=== PATIENT | female | born 1985 | race Caucasian/White ===

== ENCOUNTER 2018-01-11 11:58 | Emergency (ER) | payer OTHER, SELFPAY ==
[2018-01-11 13:14] LABS: Urine Blood 3+ (NEG); Urine Glucose NEGATIVE (NEG); Urine Protein 1+ (NEG); Urine Specific Gravity 1.025 (1.005-1.030); Urine pH 5.5 (5.0-7.0)
[2018-01-11 13:18] LABS: Urine Bacteria 20-50 /HPF (<20); Urine Culture Reflex Order NOT NEEDED; Urine RBC >50 /HPF (NONE SEEN)
[2018-01-11 13:19] LABS: Urine Trichomonas PRESENT (NONE SEEN)
[2018-01-11] MEDS ORDERED: KETOROLAC 30 MG/ML INJ ONE (13:38)
[2018-01-11] MEDS ORDERED: metroNIDAZOLE 500 MG TABLET ONE (13:38)
--- NOTE | 2018-01-11 13:51 | RAD REPORT ---
EXAM DESCRIPTION: CT - Stone Protocol - 01/11/2018 1:34 pm CLINICAL HISTORY: Flank pain. ABD PAIN COMPARISON: No comparisons TECHNIQUE: Axial images were obtained without oral or IV contrast. Lack of contrast limits solid org an and vascular assessment. The [id number] spans the entirety of the system partially obscuring uppermost abdomen and lung bases. Coronal reformatted images were obtained and reviewed. All CT scans are performed using dose optimization technique as appropriate and may include automated exposure control or mA/KV adjustment according to patient size. FINDINGS: The lower lung ferraro are clear. Imaged portions of the liver and spleen show no suspicious findings on non-contrast imaging. The panc reas and adrenal glands are normal. No pathologic lymphadenopathy in the abdomen or pelvis. No urinary tract stones or obstructive uropathy. No bowel obstruction, free air, free fluid or abscess. Normal appendix noted. Mild posterior disc bulge at L5-S1. IMPRESSION: No urinary tract stones or obstructive uropathy.
--- NOTE | 2018-01-11 13:55 | ER ---
Nurse's Notes [facility] Name: Ginny Leonardo Age: 32 yrs Sex: Female : 1985 Arrival Date: 01/11/2018 Time: 12:02 Bed 24 Private MD: Diagnosis: Trichomoniasis;Lower abdominal pain, unspecified Presentation: 01/11 12:17 Presenting complaint: Patient states: upper and lower left sided abdominal pain since aj1 last night. Reports nausea, denies vomiting, diarrhea,fever. Transition of care: patient was not received from another setting of care. Onset of symptoms was January 10, 2018. Risk Assessment: Do you want to hurt yourself or someone else? Patient reports no desire to harm self or others. Initial Sepsis Screen: Does the patient meet any 2 criteria? HR > 90 bpm. No. Patient's initial sepsis screen is negative. Does the patient have a suspected source of infection? No. Patient's initial sepsis screen is negative. Care prior to arrival: None. 12:17 Method Of Arrival: Ambulatory aj 12:17 Acuity: ANG 3 aj1 Triage Assessment: 12:22 General: Appears uncomfortable, Behavior is cooperative, restless. Pain: Complains of aj1 pain in left upper quadrant and left lower quadrant Pain does not radiate. Pain currently is 8 out of 10 on a pain scale. Quality of pain is described as sharp, stabbing, Pain began 1 day ago. Is continuous, Alleviated by nothing. Aggravated by walking. GI: Reports lower abdominal pain, upper abdominal pain, nausea, Patient currently denies diarrhea, vomiting. 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 - Social history:: Smoking status: Patient uses tobacco products, smokes one-half pack cigarettes per day. - Ebola Screening: : Patient denies travel to an Ebola-affected area in the 21 days before illness onset. Screenin:12 Abuse screen: Denies threats or abuse. Denies injuries from another. Nutritional aj screening: No deficits noted. Tuberculosis screening: No symptoms or risk factors identified. Fall Risk None identified. Assessment: 14:11 General: Appears in no apparent distress. comfortable, Behavior is calm, cooperative, aj appropriate for age. Pain: Complains of pain in pelvis. Neuro: Level of Consciousness is awake, alert, obeys commands, Oriented to person, place, time, situation, Appropriate for age. Respiratory: Airway is patent Respiratory effort is even, unlabored, Respiratory pattern is regular, symmetrical. : Reports pain in suprapubic area. Derm: Skin is intact, is healthy with good turgor, Skin is pink, warm \T\ dry. normal. 14:26 GI: aj 14:27 GI: aj Vital Signs: 12:22 BP 119 / 76; Pulse 104; Resp 22; Temp 98.2; Pulse Ox 99% on R/A; Weight 86.18 kg (R); aj1 Height 5 ft. 4 in. (162.56 cm); Pain 8/10; 14:26 BP 121 / 85; Pulse 76; Resp 16; Temp 98.3; Pulse Ox 99% on R/A; aj 12:22 Body Mass Index 32.61 (86.18 kg, 162.56 cm) aj1 ED Course: 12:02 Patient arrived in ED. rg4 12:21 Triage completed. aj1 12:22 Arm band placed on Patient placed in an exam room. aj1 12:29 Kandis Thurman [facility]-C [facility]. snw 12:29 Prakash Santa MD is Attending Physician. snw 12:51 Arabella Wright, RN is Primary Nurse. aj 13:34 CT Stone Protocol In Process Unspecified. EDMS 14:12 Patient has correct armband on for positive identification. aj 14:12 No provider procedures requiring assistance completed. Patient did not have IV access aj during this emergency room visit. Administered Medications: 13:41 Drug: TORadol 60 mg Route: IM; Site: right gluteus; tl3 14:13 Follow up: Response: Pain is decreased aj 13:42 Drug: Flagyl 500 mg Route: PO; tl3 14:13 Follow up: Response: No adverse reaction aj Outcome: 13:55 Discharge ordered by . snw 14:26 Discharged to home ambulatory, with family. aj 14:26 Condition: good 14:26 Discharge instructions given to patient, family, Instructed on discharge instructions, follow up and referral plans. medication usage, Demonstrated understanding of instructions, follow-up care, medications, Prescriptions given X 3. 14:27 Patient left the ED. aj Signatures: Dispatcher [employer] Cori White RN RN aj1 Arabella Wright RN RN aj Kandis Thurman, PRINTED CIRCUIT BOARDS BEVELER-C PRINTED CIRCUIT BOARDS BEVELER-Csnw Latonia Stuart rg4 Sharon Chris RN RN tl3
--- NOTE | 2018-01-11 13:56 | EDPHYS ---
Physician Documentation [facility] Name: Ginny Leonardo Age: 32 yrs Sex: Female : 1985 Arrival Date: 01/11/2018 Time: 12:02 Bed 24 Private MD: ED Physician Prakash Santa HPI: 01/11 14:22 This 32 yrs old Female presents to ER via Ambulatory with complaints of snw Abdominal Pain, Low Back Pain. 14:22 The patient presents with abdominal pain in the lower abdomen. Onset: The snw symptoms/episode began/occurred gradually, 1 week(s) ago, and became persistent. The symptoms radiate to back. Associated signs and symptoms: Pertinent positives: nausea. The symptoms are described as crampy, steady. Severity of pain: At its worst the pain was moderate severe. The patient has not experienced similar symptoms in the past. The patient has been recently seen by a physician: with similar presenting complaints, Per [facility]. 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 - Social history:: Smoking status: Patient uses tobacco products, smokes one-half pack cigarettes per day. - Ebola Screening: : Patient denies travel to an Ebola-affected area in the 21 days before illness onset. ROS: 14:21 Constitutional: Negative for fever, chills, and weight loss, Eyes: Negative for injury, snw pain, redness, and discharge, ENT: Negative for injury, pain, and discharge, Neck: Negative for injury, pain, and swelling, Cardiovascular: Negative for chest pain, palpitations, and edema, Respiratory: Negative for shortness of breath, cough, wheezing, and pleuritic chest pain, Back: Negative for injury and pain, : Negative for injury, bleeding, discharge, and swelling, MS/Extremity: Negative for injury and deformity, Skin: Negative for injury, rash, and discoloration, Neuro: Negative for headache, weakness, numbness, tingling, and seizure. 14:21 Abdomen/GI: Positive for abdominal pain, nausea. Exam: 14:20 Constitutional: This is a well developed, well nourished patient who is awake, alert, snw and in no acute distress. Head/Face: Normocephalic, atraumatic. Eyes: Pupils equal round and reactive to light, extra-ocular motions intact. Lids and lashes normal. Conjunctiva and sclera are non-icteric and not injected. Cornea within normal limits. Periorbital areas with no swelling, redness, or edema. ENT: Nares patent. No nasal discharge, no septal abnormalities noted. Tympanic membranes are normal and external auditory canals are clear. Oropharynx with no redness, swelling, or masses, exudates, or evidence of obstruction, uvula midline. Mucous membranes moist. Neck: Trachea midline, no thyromegaly or masses palpated, and no cervical lymphadenopathy. Supple, full range of motion without nuchal rigidity, or vertebral point tenderness. No Meningismus. Chest/axilla: Normal chest wall appearance and motion. Nontender with no deformity. No lesions are appreciated. Cardiovascular: Regular rate and rhythm with a normal S1 and S2. No gallops, murmurs, or rubs. Normal PMI, no JVD. No pulse deficits. Respiratory: Lungs have equal breath sounds bilaterally, clear to auscultation and percussion. No rales, rhonchi or wheezes noted. No increased work of breathing, no retractions or nasal flaring. Back: No spinal tenderness. No costovertebral tenderness. Full range of motion. Skin: Warm, dry with normal turgor. Normal color with no rashes, no lesions, and no evidence of cellulitis. MS/ Extremity: Pulses equal, no cyanosis. Neurovascular intact. Full, normal range of motion. Neuro: Awake and alert, GCS 15, oriented to person, place, time, and situation. Cranial nerves II-XII grossly intact. Motor strength 5/5 in all extremities. Sensory grossly intact. Cerebellar exam normal. Normal gait. 14:20 Abdomen/GI: Inspection: abdomen appears normal, Bowel sounds: normal, in all quadrants, Palpation: moderate abdominal tenderness, in the right lower quadrant and left lower quadrant. Vital Signs: 12:22 BP 119 / 76; Pulse 104; Resp 22; Temp 98.2; Pulse Ox 99% on R/A; Weight 86.18 kg (R); aj1 Height 5 ft. 4 in. (162.56 cm); Pain 8/10; 14:26 BP 121 / 85; Pulse 76; Resp 16; Temp 98.3; Pulse Ox 99% on R/A; aj 12:22 Body Mass Index 32.61 (86.18 kg, 162.56 cm) aj1 MDM: 12:31 Patient medically screened. snw 14:21 Data reviewed: vital signs, nurses notes. Data interpreted: Pulse oximetry: on room air snw is 99 %. Interpretation: normal. Counseling: I had a detailed discussion with the patient and/or guardian regarding: the historical points, exam findings, and any diagnostic results supporting the discharge/admit diagnosis, lab results, radiology results, the need for outpatient follow up, to return to the emergency department if symptoms worsen or persist or if there are any questions or concerns that arise at home. Special discussion: Based on the history and exam findings, there is no indication for further emergent testing or inpatient evaluation. I discussed with the patient/guardian the need to see the OB Gyne specialist for further evaluation of the symptoms. 01/11 12:30 Order name: Urine Culture snw 01/11 12:30 Order name: Urine Microscopic Only; Complete Time: 13:22 snw 01/11 13:12 Order name: Urine Dipstick--Ancillary (enter results); Complete Time: 13:17 bd 01/11 13:12 Order name: Urine --Ancillary (enter results); Complete Time: 13:17 bd 01/11 13:18 Order name: CT Stone Protocol; Complete Time: 13:53 snw 01/11 12:30 Order name: Urine Test (obtain specimen); Complete Time: 12:51 snw 01/11 12:30 Order name: Urine Dipstick-Ancillary (obtain specimen); Complete Time: 14:11 snw Administered Medications: 13:41 Drug: TORadol 60 mg Route: IM; Site: right gluteus; tl3 14:13 Follow up: Response: Pain is decreased aj 13:42 Drug: Flagyl 500 mg Route: PO; tl3 14:13 Follow up: Response: No adverse reaction aj Disposition: 17:07 Co-signature as Attending Physician, Prakash Santa MD. rn Disposition: 01/11/18 13:55 Discharged to Home. Impression: Trichomoniasis, Lower abdominal pain, unspecified. - Condition is Stable. - Discharge Instructions: Trichomoniasis, Abdominal Pain, Women. - Prescriptions for Bentyl 20 mg Oral Tablet - take 1 tablet by ORAL route every 6 hours As needed; 20 tablet. Flagyl 500 mg Oral Tablet - take 1 tablet by ORAL route every 8 hours for 10 days; 30 tablet. Diclofenac Sodium 75 mg Oral Tablet Sustained Release - take 1 tablet by ORAL route 2 times per day; 30 tablet. - Work release form, Medication Reconciliation Form, Thank You Letter, Antibiotic Education, Prescription Opioid Use form. - Follow up: Emergency Department; When: As needed; Reason: Worsening of condition. Follow up: Private Physician; When: 2 - 3 days; Reason: Recheck today's complaints, Continuance of care, Re-evaluation by your physician. Signatures: Dispatcher [employer] EDMS Cori Call RN RN ajArabella Dos Santos RN RN Kandis Connolly, SEARCH PLANNER-C SEARCH PLANNER-Csnw Prakash Santa MD MD rn Lowrey, Tammy, RN RN tl3 Corrections: (The following items were deleted from the chart) 14:27 13:55 01/11/2018 13:55 Discharged to Home. Impression: Trichomoniasis; Lower abdominal aj pain, unspecified. Condition is Stable. Forms are Medication Reconciliation Form, Thank You Letter, Antibiotic Education, Prescription Opioid Use. Follow up: Emergency Department; When: As needed; Reason: Worsening of condition. Follow up: Private Physician; When: 2 - 3 days; Reason: Recheck today's complaints, Continuance of care, Re-evaluation by your physician. snw
== END 2018-01-11 14:27 | disposition home or self-care (01) ==
LOC: ER 11:58
DX: A59.9 Trichomoniasis, unspecified (principal); F17.210 Nicotine dependence, cigarettes, uncomplicated
CPT/HCPCS: 74176; 76377; 81003; 81015; 81025; 87086; 87088; 96372; 99283

== ENCOUNTER 2018-02-28 11:17 | Emergency (ER) | payer SELFPAY ==
--- NOTE | 2018-02-28 11:52 | ER ---
Nurse's Notes [facility] Name: Ginny Leonardo Age: 32 yrs Sex: Female : 1985 Arrival Date: 02/28/2018 Time: 11:18 Bed 12 Private MD: Diagnosis: Pneumonia, unspecified organism Presentation: 02/28 11:36 Presenting complaint: Patient states: Sinus Pressure and pain, forehead, sinus has been sg draining for a bout a day or two, reports fever of TMAX of 101, reports taking motrin for relief of fever, but not helping with other symptoms. Transition of care: patient was not received from another setting of care. Onset of symptoms was February 28, 2018. Risk Assessment: Do you want to hurt yourself or someone else? Patient reports no desire to harm self or others. Initial Sepsis Screen: Does the patient meet any 2 criteria? No. Patient's initial sepsis screen is negative. Does the patient have a suspected source of infection? No. Patient's initial sepsis screen is negative. Care prior to arrival: None. 11:36 Method Of Arrival: Ambulatory sg 11:36 Acuity: ANG 4 sg Triage Assessment: 11:40 Headache History: Denies prior headaches. General: Appears in no apparent distress. sg Behavior is calm, cooperative, appropriate for age. 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 - Social history:: Smoking status: Patient uses tobacco products, smokes one-half pack cigarettes per day. - Ebola Screening: : Patient negative for fever greater than or equal to 101.5 degrees Fahrenheit, and additional compatible Ebola Virus Disease symptoms Patient denies exposure to infectious person Patient denies travel to an Ebola-affected area in the 21 days before illness onset No symptoms or risks identified at this time. Screenin:40 Abuse screen: Denies threats or abuse. Denies injuries from another. Nutritional sg screening: No deficits noted. Tuberculosis screening: No symptoms or risk factors identified. Never had TB. Fall Risk None identified. Assessment: 11:42 General: Appears in no apparent distress. comfortable, well groomed, well developed, sg well nourished, Behavior is calm, cooperative, appropriate for age. Pain: Complains of pain in forehead, right cheek and left cheek Quality of pain is described as throbbing. Neuro: No deficits noted. Cardiovascular: No deficits noted. Denies chest pain, diaphoresis, fatigue, lightheadedness, nausea, palpitations, shortness of breath, syncope, vomiting. Respiratory: Airway is patent Respiratory effort is even, unlabored, Respiratory pattern is regular, symmetrical, Breath sounds are clear. Respiratory: Reports cough that is non-productive. GI: No signs and/or symptoms were reported involving the gastrointestinal system. : No signs and/or symptoms were reported regarding the genitourinary system. EENT: Nares are clear bilaterally Throat is reddened Reports nasal congestion. Derm: Skin is pink, warm \T\ dry. Musculoskeletal: No signs and/or symptoms reported regarding the musculoskeletal system. Vital Signs: 11:38 Weight 90.72 kg (R); Height 5 ft. 11 in. (180.34 cm); Pain 10/10; sg 11:38 Pulse 95; Resp 20; Temp 99.1(TE); Pulse Ox 99% on R/A; sg 11:40 BP 116 / 81; sg 11:38 Body Mass Index 27.89 (90.72 kg, 180.34 cm) sg ED Course: 11:18 Patient arrived in ED. as 11:38 Triage completed. sg 11:38 Arm band placed on. sg 11:43 Kandis Thurman FNP-C is [facility]. snw 11:43 Angel Ta MD is Attending Physician. snw 11:51 Ras Colbert, LUIS is Primary Nurse. sg 12:00 No provider procedures requiring assistance completed. Patient did not have IV access sg during this emergency room visit. 12:20 Patient has correct armband on for positive identification. Bed in low position. Call sg light in reach. playground monitor on. Pulse ox on. NIBP on. Warm blanket given. Head of bed elevated. Administered Medications: 12:05 Drug: ZyrTEC - Cetirizine 10 mg Route: PO; sg 12:06 Drug: Albuterol - atroVENT (3:1) (2.5 mg - 0.5 mg) 3 ml Route: Nebulizer; sg 12:06 Drug: Rocephin (cefTRIAXone) 1 grams {Note: left ventrogluteal.} Route: IM; Site: Other;sg 12: Drug: Zithromax 500 mg Route: PO; sg 12: Drug: predniSONE 40 mg Route: PO; sg 12:06 Drug: Pepcid 20 mg Route: PO; sg Outcome: 11:51 Discharge ordered by . kaye 12:25 Discharged to home ambulatory. sg 12:25 Condition: good 12:25 Discharge instructions given to patient, Instructed on discharge instructions, follow up and referral plans. medication usage, safety practices, Demonstrated understanding of instructions, follow-up care, medications, Prescriptions given X 4. 12:31 Patient left the ED. eb Signatures: Ras Colbert RN RN sg Kandis Thurman, EDITOR PRODUCER-C EDITOR PRODUCER-Csnw Gloria Allred Elizabeth eb Corrections: (The following items were deleted from the chart) 11:41 11:38 Pulse 115bpm; Resp 20bpm; Pulse Ox 99% RA; Temp 99.1F Temporal; sg sg
--- NOTE | 2018-02-28 11:52 | EDPHYS ---
Physician Documentation [facility] Name: Ginny Leonardo Age: 32 yrs Sex: Female : 1985 Arrival Date: 02/28/2018 Time: 11:18 Bed 12 Private MD: ED Physician Angel Ta HPI: 02/28 12:02 This 32 yrs old Female presents to ER via Ambulatory with complaints of Sinus snw Congestion, Headache. 12:02 The patient or guardian reports airway noise, flu symptoms, arthralgias, low-grade snw fever, myalgias. Onset: The symptoms/episode began/occurred yesterday. Severity of symptoms: At their worst the symptoms were moderate, severe. Associated signs and symptoms: Pertinent positives: fever. It is unknown whether or not the patient has had similar symptoms in the past. The patient has not recently seen a physician. RUNNER ON: 11:38 LMP 01/12/2018 sg Historical: - Allergies: 11:40 No Known Allergies; sg - Home Meds: 11:40 None [Active]; sg - PMHx: 11:40 chronic disc pain; Depression; TIA; sg - PSHx: 11:40 ; D \T\ C; sg - Immunization history:: Adult Immunizations up to date. - Social history:: Smoking status: Patient uses tobacco products, smokes one-half pack cigarettes per day. - Ebola Screening: : Patient negative for fever greater than or equal to 101.5 degrees Fahrenheit, and additional compatible Ebola Virus Disease symptoms Patient denies exposure to infectious person Patient denies travel to an Ebola-affected area in the 21 days before illness onset No symptoms or risks identified at this time. ROS: 11:56 Constitutional: Negative for fever, chills, and weight loss, + fatigue Eyes: Negative snw for injury, pain, redness, and discharge, ENT: Negative for injury, pain, and discharge, Neck: Negative for injury, pain, and swelling, Cardiovascular: Negative for chest pain, palpitations, and edema. 11:56 Abdomen/GI: Negative for abdominal pain, nausea, vomiting, diarrhea, and constipation, Back: Negative for injury and pain, : Negative for injury, bleeding, discharge, and swelling, MS/Extremity: Negative for injury and deformity, Skin: Negative for injury, rash, and discoloration, Neuro: Negative for headache, weakness, numbness, tingling, and seizure. 11:56 Respiratory: Positive for cough, shortness of breath, wheezing. Exam: 11:53 Constitutional: This is a well developed, well nourished patient who is awake, alert, snw and in no acute distress. 11:53 Eyes: Pupils equal round and reactive to light, extra-ocular motions intact. Lids and lashes normal. Conjunctiva and sclera are non-icteric and not injected. Cornea within normal limits. Periorbital areas with no swelling, redness, or edema. Neck: Trachea midline, no thyromegaly or masses palpated, and no cervical lymphadenopathy. Supple, full range of motion without nuchal rigidity, or vertebral point tenderness. No Meningismus. Chest/axilla: Normal chest wall appearance and motion. Nontender with no deformity. No lesions are appreciated. Cardiovascular: Regular rate and rhythm with a normal S1 and S2. No gallops, murmurs, or rubs. Normal PMI, no JVD. No pulse deficits. Abdomen/GI: Soft, non-tender, with normal bowel sounds. No distension or tympany. No guarding or rebound. No evidence of tenderness throughout. Back: No spinal tenderness. No costovertebral tenderness. Full range of motion. Skin: Warm, dry with normal turgor. Normal color with no rashes, no lesions, and no evidence of cellulitis. MS/ Extremity: Pulses equal, no cyanosis. Neurovascular intact. Full, normal range of motion. Neuro: Awake and alert, GCS 15, oriented to person, place, time, and situation. Cranial nerves II-XII grossly intact. Motor strength 5/5 in all extremities. Sensory grossly intact. Cerebellar exam normal. Normal gait. Psych: Awake, alert, with orientation to person, place and time. Behavior, mood, and affect are within normal limits. 11:53 Constitutional: The patient appears alert, awake, uncomfortable. 11:53 Head/face: Noted is swelling, that is moderate, of the nose, Sinus tenderness, that is mild. 11:53 Respiratory: the patient does not display signs of respiratory distress, Respirations: normal, Breath sounds: decreased breath sounds, that are moderate, wheezing: mild tachypnea, decreased air movement, congestion. Vital Signs: 11:38 Weight 90.72 kg (R); Height 5 ft. 11 in. (180.34 cm); Pain 10/10; sg 11:38 Pulse 95; Resp 20; Temp 99.1(TE); Pulse Ox 99% on R/A; sg 11:40 BP 116 / 81; sg 11:38 Body Mass Index 27.89 (90.72 kg, 180.34 cm) sg MDM: 11:43 Patient medically screened. snw 12:01 Data reviewed: vital signs, nurses notes. Data interpreted: Pulse oximetry: on room air snw is 99 %. Interpretation: normal. Counseling: I had a detailed discussion with the patient and/or guardian regarding: the historical points, exam findings, and any diagnostic results supporting the discharge/admit diagnosis, the presence of at least one elevated blood pressure reading (>120/80) during this emergency department visit, the need for outpatient follow up, to return to the emergency department if symptoms worsen or persist or if there are any questions or concerns that arise at home, smoking cessation. Special discussion: Based on the history and exam findings, there is no indication for further emergent testing or inpatient evaluation. I discussed with the patient/guardian the need to see the primary care provider for further evaluation of the symptoms. Administered Medications: 12:05 Drug: ZyrTEC - Cetirizine 10 mg Route: PO; sg 12:06 Drug: Albuterol - atroVENT (3:1) (2.5 mg - 0.5 mg) 3 ml Route: Nebulizer; sg 12:06 Drug: Rocephin (cefTRIAXone) 1 grams {Note: left ventrogluteal.} Route: IM; Site: Other;sg 12:06 Drug: Zithromax 500 mg Route: PO; sg 12:06 Drug: predniSONE 40 mg Route: PO; sg 12:06 Drug: Pepcid 20 mg Route: PO; sg Disposition: 15:19 Co-signature as Attending Physician, Angel Ta MD I agree with the assessment and marty plan of care. Disposition: 02/28/18 11:51 Discharged to Home. Impression: Pneumonia, unspecified organism. - Condition is Stable. - Discharge Instructions: Community-Acquired Pneumonia, Adult, Steps to Quit Smoking, Smoking Hazards. - Prescriptions for Zyrtec 10 mg Oral Tablet - take 1 tablet by ORAL route once daily As needed; 20 tablet. Prednisone 20 mg Oral Tablet - take 2 tablet by ORAL route once daily for 5 days; 10 tablet. Albuterol Sulfate 90 mcg/actuation - inhale 1-2 puff by INHALATION route every 4-6 hours; 1 Inhaler. Pepcid 20 mg Oral Tablet - take 1 tablet by ORAL route once daily; 20 tablet. Zithromax 500 mg Oral Tablet - take 1 tablet by ORAL route once daily for 5 days; 5 tablet. - Work release form, Medication Reconciliation Form, Thank You Letter, Antibiotic Education, Prescription Opioid Use form. - Follow up: Private Physician; When: 2 - 3 days; Reason: Recheck today's complaints, Continuance of care, Re-evaluation by your physician. Follow up: Emergency Department; When: As needed; Reason: Worsening of condition. Signatures: Ras Colbert RN RN sg Anderson, Corey, MD MD cha Therrien, Shelly, RECORDER HELPER SEISMOGRAPH-C RECORDER HELPER SEISMOGRAPH-Ivory Fernandez Corrections: (The following items were deleted from the chart) 12:31 11:51 02/28/2018 11:51 Discharged to Home. Impression: Pneumonia, unspecified organism. eb Condition is Stable. Forms are Medication Reconciliation Form, Thank You Letter, Antibiotic Education, Prescription Opioid Use. Follow up: Private Physician; When: 2 - 3 days; Reason: Recheck today's complaints, Continuance of care, Re-evaluation by your physician. Follow up: Emergency Department; When: As needed; Reason: Worsening of condition. snw
[2018-02-28] MEDS ORDERED: CETIRIZINE HCL 5 MG TABLET ONE (11:58)
[2018-02-28] MEDS ORDERED: AZITHROMYCIN 250 MG TAB ONE (11:58)
[2018-02-28] MEDS ORDERED: LIDOCAINE 1% MPF 5 ML VIAL ONE (11:58)
[2018-02-28] MEDS ORDERED: ALBUTEROL 2.5 MG/3 ML NEB SOL ONE (11:58)
[2018-02-28] MEDS ORDERED: FAMOTIDINE 20 MG TAB ONE (11:59)
[2018-02-28] MEDS ORDERED: IPRATROPIUM BROM 0.5MG/2.5ML ONE (11:59)
[2018-02-28] MEDS ORDERED: predniSONE 20 MG TAB ONE (11:59)
[2018-02-28] MEDS ORDERED: CEFTRIAXONE 1000 MG/VIAL ONE (11:59)
== END 2018-02-28 12:31 | disposition home or self-care (01) ==
LOC: ER 11:17
DX: J18.9 Pneumonia, unspecified organism (principal); F17.210 Nicotine dependence, cigarettes, uncomplicated
CPT/HCPCS: 94640; 96372; 99284; J7512

== ENCOUNTER 2018-05-25 14:38 | Emergency (ER) | payer SELFPAY ==
--- NOTE | 2018-05-25 15:10 | EDPHYS ---
Physician Documentation [facility] Name: Ginny Leonardo Age: 32 yrs Sex: Female : 1985 Arrival Date: 05/25/2018 Time: 14:40 Bed 23 Private MD: None, None ED Physician Prakash Santa HPI: 05/25 15:08 This 32 yrs old Female presents to ER via Ambulatory with complaints of jmm Insect Bite. 15:08 The patient presents with cellulitis of the abdomen. Onset: The symptoms/episode jmm began/occurred gradually, 2 day(s) ago. Possible cause(s): unknown. Associated signs and symptoms: Pertinent negatives: fever. This is a 32 year old female with a history of depression that presents to the ED with swelling to her abdomen she believes may have been cause by an insect bite. Denies fever. States having a previous hisotyr of staph infection. 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 - Social history:: Smoking status: Patient uses tobacco products, smokes one-half pack cigarettes per day. - Ebola Screening: : Patient negative for fever greater than or equal to 101.5 degrees Fahrenheit, and additional compatible Ebola Virus Disease symptoms Patient denies exposure to infectious person Patient denies travel to an Ebola-affected area in the 21 days before illness onset No symptoms or risks identified at this time. ROS: 15:08 Constitutional: Negative for fever, chills, and weight loss, Cardiovascular: Negative jmm for chest pain, palpitations, and edema, Respiratory: Negative for shortness of breath, cough, wheezing, and pleuritic chest pain. 15:08 Skin: Positive for erythema. 15:08 All other systems are negative. Exam: 15:08 Head/Face: atraumatic. Eyes: EOMI, no conjunctival erythema appreciated ENT: Moist jmm Mucus Membranes Neck: Trachea midline, Supple Chest/axilla: Normal chest wall appearance and motion. Cardiovascular: Regular rate and rhythm. No edema appreciated Respiratory: Normal respirations, no respiratory distress appreciated 15:08 Constitutional: The patient appears in no acute distress, alert, awake. 15:08 Abdomen/GI: erythema noted to the lower abdomen. 15:08 Back: ROM is normal. 15:08 Musculoskeletal/extremity: ROM: intact in all extremities. 15:08 Skin: erythema noted to the right lower abdomen, no induration is appreciated, mildly tender to palpation. 15:08 Neuro: Orientation: is normal, Mentation: is normal, Memory: is normal. 15:08 Psych: Behavior/mood is pleasant, cooperative. Vital Signs: 14:53 BP 123 / 72; Pulse 89; Resp 18; Temp 97.3; Pulse Ox 100% on R/A; Weight 99.79 kg; aj Height 5 ft. 4 in. (162.56 cm); 14:53 Body Mass Index 37.76 (99.79 kg, 162.56 cm) aj MDM: 15:08 Patient medically screened. [facility] 15:09 Data reviewed: vital signs, nurses notes. Counseling: I had a detailed discussion with triston the patient and/or guardian regarding: the historical points, exam findings, and any diagnostic results supporting the discharge/admit diagnosis, the need for outpatient follow up, to return to the emergency department if symptoms worsen or persist or if there are any questions or concerns that arise at home. 15:09 Data interpreted: Pulse oximetry: on room air is 100 %. [facility] Administered Medications: No medications were administered Disposition: 17:51 Co-signature as Attending Physician, Prakash Santa MD. rn Disposition: 05/25/18 15:09 Discharged to Home. Impression: Cellulitis of abdominal wall. - Condition is Stable. - Discharge Instructions: Cellulitis, Adult. - Prescriptions for Cephalexin 500 mg Oral Capsule - take 1 capsule by ORAL route every 6 hours for 10 days; 40 capsule. Tylenol- Codeine #3 300-30 mg Oral Tablet - take 1 tablet by ORAL route every 6 hours As needed; 9 tablet. Bactrim DS 800- 160 mg Oral Tablet - take 1 tablet by ORAL route every 12 hours for 10 days; 20 tablet. - Medication Reconciliation Form, Thank You Letter, Antibiotic Education, Prescription Opioid Use form. - Follow up: Private Physician; When: 2 - 3 days; Reason: Recheck today's complaints, Continuance of care, Re-evaluation by your physician. Signatures: Arabella Wright RN Paul Ocasio PA PA jmm Nieto, Roman, MD MD rn Vicente, Ronaldo, RN RN rv Corrections: (The following items were deleted from the chart) 15:13 15:09 05/25/2018 15:09 Discharged to Home. Impression: Cellulitis of abdominal wall. rv Condition is Stable. Forms are Medication Reconciliation Form, Thank You Letter, Antibiotic Education, Prescription Opioid Use. Follow up: Private Physician; When: 2 - 3 days; Reason: Recheck today's complaints, Continuance of care, Re-evaluation by your physician. triston
--- NOTE | 2018-05-25 15:10 | ER ---
Nurse's Notes [facility] Name: Ginny Leonardo Age: 32 yrs Sex: Female : 1985 Arrival Date: 05/25/2018 Time: 14:40 Bed 23 Private MD: None, None Diagnosis: Cellulitis of abdominal wall Presentation: 05/25 14:52 Presenting complaint: Patient states: Reports abscess to right side of abdomen for 2 aj days. Transition of care: patient was not received from another setting of care. Onset of symptoms was May 25, 2018. Risk Assessment: Do you want to hurt yourself or someone else? Patient reports no desire to harm self or others. Initial Sepsis Screen: Does the patient meet any 2 criteria? No. Patient's initial sepsis screen is negative. Does the patient have a suspected source of infection? No. Patient's initial sepsis screen is negative. Care prior to arrival: None. 14:52 Method Of Arrival: Ambulatory 14:52 Acuity: ANG 4 aj Triage Assessment: 14:53 Bite description: bite sustained to right lower quadrant by an unknown animal, animal aj information: vaccination(s) is not applicable. General: Appears in no apparent distress. comfortable, Behavior is calm, cooperative, appropriate for age. Pain: Complains of pain in right lower quadrant. Neuro: Level of Consciousness is awake, alert, obeys commands, Oriented to person, place, time, situation, Appropriate for age. Respiratory: Airway is patent Trachea midline Respiratory effort is even, unlabored, Respiratory pattern is regular, symmetrical. Derm: Skin is intact, is healthy with good turgor, Skin is pink, warm \T\ dry. normal, Abscess located on right lower quadrant has no drainage, is red. 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 - Social history:: Smoking status: Patient uses tobacco products, smokes one-half pack cigarettes per day. - Ebola Screening: : Patient negative for fever greater than or equal to 101.5 degrees Fahrenheit, and additional compatible Ebola Virus Disease symptoms Patient denies exposure to infectious person Patient denies travel to an Ebola-affected area in the 21 days before illness onset No symptoms or risks identified at this time. Screenin:59 Abuse screen: Denies threats or abuse. Denies injuries from another. Nutritional rv screening: No deficits noted. Tuberculosis screening: No symptoms or risk factors identified. Fall Risk None identified. Assessment: 14:58 General: Appears in no apparent distress. comfortable, Behavior is calm, cooperative. rv Pain: Denies pain. Neuro: Level of Consciousness is awake, alert, obeys commands, Oriented to person, place, time, situation. Cardiovascular: Capillary refill < 3 seconds. Respiratory: Airway is patent. GI: No signs and/or symptoms were reported involving the gastrointestinal system. : No signs and/or symptoms were reported regarding the genitourinary system. EENT: No signs and/or symptoms were reported regarding the EENT system. Derm: Rash noted that is red, raised, on right lower quadrant. Vital Signs: 14:53 BP 123 / 72; Pulse 89; Resp 18; Temp 97.3; Pulse Ox 100% on R/A; Weight 99.79 kg; aj Height 5 ft. 4 in. (162.56 cm); 14:53 Body Mass Index 37.76 (99.79 kg, 162.56 cm) ED Course: 14:40 Patient arrived in ED. mr 14:41 None, None is Private Physician. mr 14:53 Triage completed. aj 14:53 Arm band placed on right wrist. Patient placed in an exam room. 14:56 Paul Bautista PA is PHCP. [facility] 14:56 Prakash Santa MD is Attending Physician. [facility] 14:59 Patient has correct armband on for positive identification. Bed in low position. Call rv light in reach. Side rails up X 1. Pulse ox on. NIBP on. 15:13 No provider procedures requiring assistance completed. Patient did not have IV access rv during this emergency room visit. Administered Medications: No medications were administered Outcome: 15:09 Discharge ordered by . [facility] 15:13 Discharged to home ambulatory. rv 15:13 Condition: good 15:13 Discharge instructions given to patient, Instructed on discharge instructions, follow up and referral plans. medication usage, Demonstrated understanding of instructions, follow-up care, medications, Prescriptions given X 1. 15:13 Patient left the ED. rv Signatures: Arabella Wright, RN RN Paul Hernandez PA PA jmm Rivera, Mary mr Vicente, Ronaldo RN RN rv
== END 2018-05-25 15:13 | disposition home or self-care (01) ==
LOC: ER 14:38
DX: L03.311 Cellulitis of abdominal wall (principal); F17.210 Nicotine dependence, cigarettes, uncomplicated; F32.9 Major depressive disorder, single episode, unspecified
CPT/HCPCS: 99283